=== PATIENT | male | born 1950 | race Caucasian/White ===

== ENCOUNTER 2019-12-16 12:38 | Emergency (ER) | payer MEDICARE, OTHER ==
[~2019-12-16] VITALS: Ht 180.3 cm; Wt 93.2 kg
[2019-12-16 12:46] VITALS: Ht 180.3 cm; Wt 93.2 kg
[2019-12-16] MEDS ORDERED: LISINOPRIL20 MG (12:48)
[2019-12-16] MEDS ORDERED: FLECAINIDE ACE100 MG (12:48)
[2019-12-16] MEDS ORDERED: PRAVACHOL20 MG (12:49)
[2019-12-16] MEDS ORDERED: ELIQUIS5 MG (12:49)
[2019-12-16] MEDS ORDERED: NORVASC5 MG (12:49)
[2019-12-16] MEDS ORDERED: TOPROL XL100 MG (12:49)
[2019-12-16] MEDS ORDERED: OMEPRAZOLE20 M1 (12:50)
[2019-12-16 14:05] LABS: BASOPHILS 0.3 % (0-2); EOSINOPHILS 2.8 % (0-7); HEMATOCRIT 45.5 % (42.0-54.0); HEMOGLOBIN 14.9 g/dL (13.5-17.5); IMMATURE GRANULOCYTES 0.1 % (0-5); LYMPHOCYTES 18.3 % (15-50); MCH 30.3 pg (26.0-34.0); MCHC 32.7 g/dL (31.0-37.0); MCV 92.5 fL (80.0-100.0); MEAN PLATELET VOLUME 10.5 fL (7.4-10.4); MONOCYTES 8.5 % (2-11); PLATELET COUNT 135 10x3/uL (130-400); RBC 4.92 10x6/uL (4.20-6.10); RDW 13.3 % (11.5-14.5); WBC 7.1 10x3/uL (4.8-10.8)
[2019-12-16 14:13] LABS: CALC OSMOLALITY 276 mosm/kg (275-300); CALCIUM 9.1 mg/dL (8.5-10.1); CARBON DIOXIDE 28.7 mmol/L (21.0-32.0); CHLORIDE - SERUM 106 mmol/L (98-107); CREATININE - SERUM 0.9 mg/dL (0.6-1.3); GLUCOSE 95 mg/dL (74-106); POTASSIUM - SERUM 3.8 mmol/L (3.5-5.1); SODIUM 138 mmol/L (136-145); UREA NITROGEN 16 mg/dL (7-18); eGFR NON AFRICAN AMERICAN 89 mL/min (90-120)
[2019-12-16 14:48] LABS: APTT 32.9 SECONDS (22.8-39.4); INR 1.27 (0.85-1.17); PROTIME 15.8 SECONDS (11.6-15.0)
[2019-12-16 15:38] LABS: ALBUMIN 3.6 g/dL (3.4-5.0); ALKALINE PHOSPHATASE 94 U/L (30-120); ALT (SGPT) 19 U/L (10-68); BILIRUBIN - TOTAL 0.67 mg/dL (0.2-1.3); CREATINE KINASE 41 UL (21-232); MAGNESIUM - SERUM 2.2 mg/dL (1.8-2.4); PROTEIN - SERUM 7.1 g/dL (6.4-8.2)
[2019-12-16 18:25] VITALS: BP 147/66
== END 2019-12-16 18:26 | disposition home or self-care (01) ==
LOC: D.ER 12:38
DX: K21.9 Gastro-esophageal reflux disease without esophagitis (principal); I10 Essential (primary) hypertension